=== PATIENT | female | born 1995 | race Caucasian/White ===

== ENCOUNTER 2019-07-12 08:39 | Emergency (ER) | payer OTHER ==
[~2019-07-12] VITALS: Ht 167.6 cm; Wt 79.4 kg
[~2019-07-12 08:39] MED LIST: DIAZ2 PO; Norco 5-325 Ta1 EACH PO
[2019-07-12 09:44] LABS: BASOPHILS ABSOLUTE AUTO 0.04 K/mm3 (0.00-0.23); BASOPHILS PERCENT AUTO 0 % (0-2); EOSINOPHILS ABSOLUTE AUTO 0.09 K/mm3 (0.00-0.68); EOSINOPHILS PERCENT AUTO 1 % (0-6); Hematocrit 38.3 % (33.0-51.0); Hemoglobin 12.5 g/dL (11.5-16.0); IMMATURE GRAN ABSOLUTE AUTO 0.06 K/mm3 (0.00-0.10); IMMATURE GRAN PERCENT AUTO 0 % (0-1); LYMPHOCYTES ABSOLUTE AUTO 1.88 K/mm3 (0.84-5.20); LYMPHOCYTES PERCENT AUTO 11 % (21-46); MONOCYTES PERCENT AUTO 11 % (4-13); Mean Corpuscular HGB 31.2 pg (26.0-34.0); Mean Corpuscular HGB Conc 32.6 g/dL (31.5-36.5); Mean Corpuscular Volume 96 fL (80-100); Mean Platelet Volume 9.4 fL (9.1-12.4); NEUTROPHILS PERCENT AUTO 77 % (41-73); Platelet Count 275 K/mm3 (150-400); RDW Coefficient Variation 12.7 % (11.7-14.2); RDW Standard Deviation 44.5 fL (35.1-46.3); Red Blood Cell Count 4.01 M/mm3 (3.80-5.20); White Blood Cell Count 17.07 K/mm3 (4.00-11.30)
[2019-07-12 10:13] LABS: Alanine Aminotransfer (ALT/SGP 17 U/L (12-78); Albumin, Blood 3.4 g/dL (3.4-5.0); Albumin/Globulin Ratio 0.8 (0.8-1.8); Alk Phos 60 U/L (50-136); Anion Gap 4 mmol/L (6-16); Aspartate Aminotrans (AST/SGOT 15 U/L (12-37); Bilirubin, Total 0.3 mg/dL (0.1-1.0); Blood Urea Nitrogen 8 mg/dL (8-24); Bun/Creatinine Ratio 9.2 (12.0-20.0); CO2, Blood 27 mmol/L (21-32); Calcium, Blood 8.6 mg/dL (8.5-10.1); Chloride, Blood 105 mmol/L (98-108); Creatinine, Blood 0.87 mg/dL (0.40-1.00); Globulin, Blood 4.4 g/dL (2.2-4.0); Glomerular Filtration Rate >60 (60-); Glucose, Blood 112 mg/dL (70-99); Potassium, Blood 4.5 mmol/L (3.5-5.5); Sodium, Blood 136 mmol/L (136-145); Total Protein, Blood 7.8 g/dL (6.4-8.2)
[2019-07-12 10:57] LABS: Source, Urine Clean Catch
[2019-07-12 11:05] LABS: Appearance, Urine Hazy (Clear); Bilirubin, Urine Neg (Neg); Blood, Urine 5+ (Neg); Color, Urine Yellow (P-Yellow); Glucose Qualitative, Urine Neg (Neg); Ketones, Urine Neg (Neg); Leukocyte Esterase, Urine 3+ (Neg); Nitrite, Urine Pos (Neg); Protein, Urine 2+ (Neg); Specific Gravity, Urine 1.005 (1.003-1.022); Urobilinogen, Urine NORM (Normal)
[2019-07-12 11:22] LABS: White Blood Cells, Urine 50-100 /hpf (0-5)
[2019-07-12 11:24] LABS: Bacteria Many /hpf; Squamous Epithelial Cells Few /hpf (Few)
[2019-07-12] MEDS ORDERED: ONDA4ODT MM (12:10)
[2019-07-12] MEDS ORDERED: Percocet 5-3251 EACH PO (12:10)
[2019-07-12] MEDS ORDERED: CEFP200 PO (12:10)
== END 2019-07-12 12:56 | disposition home or self-care (01) ==
LOC: ER 08:39
PROVIDERS: Physician Assistant
DX: N12 Tubulo-interstitial nephritis, not specified as acute or chronic (principal)
CPT/HCPCS: 36415; 71046; 74177; 76705; 80053; 81001; 85025; 87077; 87086; 87186; 96361; 96365-59; 96375; 96376; 99284-25; J0696; J1170; J1885; J2405; J7120; Q9967

== ENCOUNTER → 2020-02-16 | Outpatient (CLI) | payer OTHER ==
[~2020-02-16] MED LIST changes: +CEFP200 PO; +ONDA4ODT MM; +Percocet 5-3251 EACH PO
[2020-02-16 14:06] LABS: BASOPHILS ABSOLUTE AUTO 0.05 K/mm3 (0.00-0.23); BASOPHILS PERCENT AUTO 1 % (0-2); EOSINOPHILS ABSOLUTE AUTO 0.29 K/mm3 (0.00-0.68); EOSINOPHILS PERCENT AUTO 3 % (0-6); Hematocrit 42.2 % (33.0-51.0); Hemoglobin 14.2 g/dL (11.5-16.0); IMMATURE GRAN ABSOLUTE AUTO 0.03 K/mm3 (0.00-0.10); IMMATURE GRAN PERCENT AUTO 0 % (0-1); LYMPHOCYTES PERCENT AUTO 27 % (21-46); MONOCYTES ABSOLUTE AUTO 0.62 K/mm3 (0.16-1.47); MONOCYTES PERCENT AUTO 7 % (4-13); Mean Corpuscular HGB 30.5 pg (26.0-34.0); Mean Corpuscular HGB Conc 33.6 g/dL (31.5-36.5); Mean Corpuscular Volume 91 fL (80-100); Mean Platelet Volume 9.8 fL (9.1-12.4); NEUTROPHILS PERCENT AUTO 61 % (41-73); Platelet Count 317 K/mm3 (150-400); RDW Coefficient Variation 12.7 % (11.7-14.2); RDW Standard Deviation 41.3 fL (35.1-46.3); Red Blood Cell Count 4.65 M/mm3 (3.80-5.20); White Blood Cell Count 8.49 K/mm3 (4.00-11.30)
[2020-02-16 14:23] LABS: Anion Gap 10 mmol/L (6-16); Blood Urea Nitrogen 9 mg/dL (8-24); Bun/Creatinine Ratio 10.5 (12.0-20.0); CO2, Blood 26 mmol/L (21-32); Calcium, Blood 9.1 mg/dL (8.5-10.1); Chloride, Blood 104 mmol/L (98-108); Creatinine, Blood 0.86 mg/dL (0.40-1.00); Glomerular Filtration Rate >60 (60-); Glucose, Blood 105 mg/dL (70-99); Potassium, Blood 3.8 mmol/L (3.5-5.5); Sodium, Blood 140 mmol/L (136-145); Thyroid Stimulating Hormone 1.549 uIU/mL (0.360-4.800)
== END | disposition home or self-care (01) ==
LOC: LAB EV 14:01 → LAB SHORT 14:01
PROVIDERS: Physician Assistant Surgical
DX: E86.0 Dehydration (principal); R53.83 Other fatigue
CPT/HCPCS: 80048; 84443; 85025

== ENCOUNTER 2020-08-29 14:04 | Emergency (ER) | payer OTHER ==
[~2020-08-29] VITALS: Ht 170.2 cm; Wt 92.5 kg
== END 2020-08-29 14:21 | disposition home or self-care (01) ==
LOC: ER 14:04
DX: R50.9 Fever, unspecified (principal)
CPT/HCPCS: 99284

== ENCOUNTER → 2020-08-29 | Outpatient (CLI) | payer OTHER ==
[2020-08-31 17:05] LABS: CORONAVIRUS (COVID19) CSH-NRL Negative (Negative)
== END ==
LOC: LAB EV 16:16 → LAB SHORT 16:16
PROVIDERS: Chiropractor
DX: Z20.828 Contact with and (suspected) exposure to other viral communicable diseases (principal); Z72.51 High risk heterosexual behavior
CPT/HCPCS: 84702; U0003

== ENCOUNTER → 2020-10-09 | Outpatient (CLI) | payer OTHER | END | disposition home or self-care (01) | LOC: LAB SHORT 08:12 | DX: J02.9 Acute pharyngitis, unspecified (principal) | CPT/HCPCS: 87081 ==